=== PATIENT | female | born 1970 | race Caucasian/White ===

== ENCOUNTER 2023-08-23 12:19 | Emergency (ER) | payer MEDICAID, OTHER ==
[~2023-08-23] VITALS: Ht 154.9 cm; Wt 63.5 kg
[2023-08-23 12:55] VITALS: BP 99/59; PULSE 78; RESP 18; TEMP 98.3; O2SAT 98
[2023-08-23] MEDS ORDERED: ERYT5OIN51 RIGHT EYE (13:42)
[2023-08-23] MEDS: FLUORESCEIN OPTH STRIP 1 MG OP ONE (13:55)
[2023-08-23] MEDS: TETRACAINE HCL/PF 0.5% OPTH 4 ML BTL OP ONE (13:55)
== END 2023-08-23 13:56 | disposition home or self-care (01) ==
LOC: MED 12:19
DX: H57.11 Ocular pain, right eye (principal)
CPT/HCPCS: 99283